=== PATIENT | female | born 1990 | race Caucasian/White ===

== ENCOUNTER 2022-01-18 01:17 | Emergency (ER) | payer OTHER ==
[2022-01-18] MEDS ORDERED: TRAMADOL HCL50 MG PO (09:33)
[2022-01-18] MEDS ORDERED: CYCLOBENZAPRINE10 MG PO (09:33)
[2022-01-18] MEDS ORDERED: IBUPROFEN800 MG PO (09:33)
== END 2022-01-18 09:38 | disposition home or self-care (01) ==
LOC: ER1 01:17
DX: S12.500A Unspecified displaced fracture of sixth cervical vertebra, initial encounter for closed fracture (principal); X58.XXXA Exposure to other specified factors, initial encounter
CPT/HCPCS: 71046; 72125; 72131; 73030; 73060; 73070; 99284